=== PATIENT | female | born 1960 | race Caucasian/White ===

== ENCOUNTER → 2016-08-16 | Outpatient (CLI) | payer BC ==
[~2016-08-16] MED LIST: FLEXERIL10 M1 PO; IBUPROFEN800 MG PO
--- NOTE | ~2016-08-16 | CT2 ---
[facility] A Service of [facility] RADIOLOGY TEXT RESULTS PATIENT: DEL OTT LOCATION: [facility] : 64 UNIT #: [id number] AGE: [address]: Brandyn Rey MD SEX: F ORDER DR: [id number] [facility] [address], [place] [address] [id number] O MR#: [id number] Acc #: [id number] NAME: DEL OTT : 1960 SEX: F STUDY DATE/TIME: 08/16/2016 8:39 UNIT: [facility]AT ROOM: STUDY DESCRIPTION: CT Abd and Pelv W Cont Attending Physician: Brandyn Rey M.D. Ordering Physician: Brandyn Rey M.D. Primary Care Physician: Tano Mayorga Aprn MEDICAL IMAGING REPORT This report is preliminary unless electronic signature is present EXAM CT abdomen and pelvis with contrast. INDICATIONS Generalized abdominal pain for the past 6 months. Neutropenia. PROCEDURE Contrast-enhanced CT of the abdomen and pelvis. This CT exam was performed with one or more of the following radiation dose reduction techniques: automatic exposure control, adjustment of mA and/or kV according to patient size, and iterative reconstruction. COMPARISON None. FINDINGS ABDOMEN WITH CONTRAST: Lung bases clear. Low-attenuation of the liver compared with spleen nonspecific on contrast-enhanced CT, but suspicious for steatosis. No liver mass. Spleen, kidneys, adrenal gland, pancreas, gallbladder unremarkable. The bowel loops are nondilated. Appendix is normal. PELVIS WITH CONTRAST: Previous hysterectomy. No pelvic mass or fluid. No aggressive appearing bone lesion. IMPRESSION 1. No acute findings in the abdomen and pelvis. 2. Possible hepatic steatosis. 3. The spleen is normal in size. Dictated by... Dayo Darling M.D. [facility] A Service [facility] RADIOLOGY TEXT RESULTS PATIENT: DEL OTT LOCATION: [facility] : 64 UNIT #: [id number] AGE: [address]: Brandyn Rey MD SEX: F ORDER DR: THIS IS AN ELECTRONICALLY VERIFIED REPORT Dayo Darling M.D. at 08/17/2016 2:30 PM SHARON/clark TD: 08/16/2016 14:29 JOB #: [id number] MEDICAL IMAGING REPORT Page 1 of 1 COPY
[2016-08-16 08:06] LABS: POC - CREATININE 0.86 mg/dL (0.44-1.03); POC - GFR >60.0 mL/min (>60)
== END | disposition home or self-care (01) ==
LOC: CCAT 07-25 07:40
PROVIDERS: Internal Medicine Medical Oncology
DX: D70.8 Other neutropenia (principal)
CPT/HCPCS: 74177; 82565; Q9967